=== PATIENT | male | born 1970 | race Hispanic/Latino ===

== ENCOUNTER 2018-08-29 20:39 | Emergency (ER) | payer SELFPAY ==
[2018-08-30] MEDS ORDERED: Ketorolac Tromethamine 30 MG/ML VIAL ONE (00:59)
[2018-08-30] MEDS ORDERED: Acetaminophen 500 MG TAB ONE (00:59)
[2018-08-30 01:04] LABS: #Eosinphils 0.3 thou/uL (0.0-0.7); #Lymphocytes 1.2 thou/uL (1.20-3.40); #Monocytes 0.6 thou/uL (0.11-0.59); #Neutrophils 6.7 thou/uL (1.40-6.50); %Basophils 0.4 % (0.0-1.0); %Eosinophils 3.2 % (0.0-10.0); %Lymphocytes 13.7 % (21.0-51.0); %Monocytes 7.1 % (0.0-10.0); %Neutrophils 75.5 % (42.0-75.0); Hemoglobin 14.2 g/dL (14.0-18.0); Mean Corpuscular HGB CONC 32.5 g/dL (32.0-36.0); Mean Corpuscular Volume 92.1 fL (78.0-98.0); Mean Platelet Volume 8.8 fL (7.4-10.4); Platelet Count 220 thou/uL (130-400); RBC Distribution Width 12.2 % (11.5-14.5); Red Blood Cell (RBC) Count 4.75 mill/uL (4.70-6.10); White Blood Cell (WBC) Count 8.8 thou/uL (4.8-10.8)
[2018-08-30 01:31] LABS: ALT (SGPT) 24 U/L (8-55); AST (SGOT) 34 U/L (5-34); Alkaline Phosphatase 162 U/L (40-150); Anion Gap 12 mmol/L (10-20); BUN (Urea Nitrogen) 11 mg/dL (8.9-20.6); Bilirubin, Total 0.4 mg/dL (0.2-1.2); Calc. Creatinine Clearance 0 mL/min (70-130); Calcium 9.7 mg/dL (7.8-10.44); Carbon Dioxide 25 mmol/L (22-29); Chloride 104 mmol/L (98-107); Estimated GFR-MDRD Greater than 90; Globulin 3.6 g/dL (2.4-3.5); Glucose 102 mg/dL (70-105); Potassium 3.4 mmol/L (3.5-5.1); Protein, Total 7.6 g/dL (6.0-8.3); Sodium 138 mmol/L (136-145)
--- NOTE | 2018-08-30 09:33 | RAD ---
FRONTAL AND LATERAL IMAGING CHEST: D ATE: 08/29/2018. COMPARISON: 02/23/2015. HISTORY: Cough and congestion. FINDINGS: There is no pneumothorax, pleural fluid, focal consolidation, or alveolar edema. There is diffuse in creased interstitial density with pulmonary hyperinflation suggesting air trapping. IMPRESSION: Interstitial prominence and pulmonary hyperinflation with no focal consolidation or alveolar edema. POS: [facility]
== END 2018-08-30 02:32 | disposition home or self-care (01) ==
LOC: ERS 20:39
DX: J18.9 Pneumonia, unspecified organism (principal); J45.909 Unspecified asthma, uncomplicated
CPT/HCPCS: 71046; 80053; 83605; 83880; 85025; 85379; 87040; 87804; 93005; 94640; 96361; 96374; J1885; J7620

== ENCOUNTER 2018-09-19 08:45 | Emergency (ER) | payer SELFPAY ==
--- NOTE | 2018-09-19 09:15 | RAD ---
EXAM: Chest Two Views 09/19/2018 9:11 AM HISTORY: Cough COMPARISON: August 29, 2018 FINDINGS: Heart: Normal Pulmonary vessels: Heart size is normal. Costophrenic angles: The lungs are clear. Lungs: No confluent pneumonia, overt edema, pleural effusion, or other acute process. Pneumothorax: None Osseous structures: No acute osseous abnormality. IMPRESSION: No significant acute intrathoracic disease.
== END 2018-09-19 11:17 | disposition home or self-care (01) ==
LOC: ERS 08:45
DX: J20.9 Acute bronchitis, unspecified (principal); Z79.899 Other long term (current) drug therapy; Z79.51 Long term (current) use of inhaled steroids
CPT/HCPCS: 71046; 94640; J7620

== ENCOUNTER 2019-02-17 06:56 | Day surgery (SDC) | payer OTHER ==
[2019-02-16 10:15] VITALS: BMI 25.0
--- NOTE | 2019-02-17 07:30 | HP ---
HISTORY OF PRESENT ILLNESS: This is a 48-year-old [place] male, comes here for a colonoscopy for colon cancer screening. The patient has no specific reason. He has no family history of colon cancer. ALLERGIES: NONE. SOCIAL HISTORY: The patient does not smoke or drink alcohol. PAST MEDICAL HISTORY: 1. Asthma. 2. Anxiety. 3. Laparoscopic cholecystectomy in 2008 for gallstone. REVIEW OF SYSTEMS: Unremarkable. PHYSICAL EXAMINATION: VITAL SIGNS: Pulse is 70, blood pressure _110/80_ CARDIOVASCULAR: First and second heart sounds heard. LUNGS: Clear to auscultation. ABDOMEN: Nontender, bowel sounds positive. ADMITTING DIAGNOSIS: A 48-year-old [place] male, comes in colonoscopy for colon cancer screening. Job ID: [id number] MTDD
[2019-02-17] MEDS ORDERED: PROPOFOL 200 MG/20 ML VIAL ONE (12:27)
[2019-02-17] MEDS ORDERED: Lidocaine 1% PF 5 ML VIAL ONE (12:27)
--- NOTE | 2019-02-17 16:38 | OP ---
DATE OF PROCEDURE: 02/17/2019 PROCEDURE PERFORMED: Colonoscopy. PREOPERATIVE DIAGNOSIS: Colon cancer screening. POSTOPERATIVE DIAGNOSIS: Diffuse colonic diverticular disease from sigmoid all the way to cecum. Otherwise normal exam. DESCRIPTION OF PROCEDURE: The patient was placed on his left lateral position and was given sedation by Anesthesia Department. A rectal exam was done before the scope was advanced into the rectum. No lesions felt on rectal exam. A Pentax video colonoscope was introduced into the rectum and advanced all the way into the cecum. The prep was good. The appendicular opening, ileocecal valve, and cecum well seen. The patient has had cecal diverticular disease and also diverticulosis in the ascending colon. Withdrawal of scope in the ascending colon, into the hepatic flexure, transverse colon, splenic flexure, descending colon, sigmoid colon shows scattered diverticular disease. Retroflexion of scope in the rectum showed no pathology. DISCHARGE PLANNING: This is a 48-year-old Latin-[place] male came for colonoscopy for colon cancer screening. He underwent colonoscopy and was found to have scattered diverticular disease. There was no pathology seen. DISCHARGE RECOMMENDATIONS: 1. The patient advised to call me if he develops abdominal pain, hematochezia, or fever. 2. High-fiber diet. 3. Repeat colonoscopy in 10 years as he has average risk for colon cancer. Job ID: [id number]
== END 2019-02-17 10:31 | disposition home or self-care (01) ==
LOC: SDC 06:56
PROVIDERS: ATTEND Internal Medicine Gastroenterology
PROC: 0DJD8ZZ Inspection of Lower Intestinal Tract, Via Natural or Artificial Opening Endoscopic (ICD-10-PCS; principal; 2019-02-17)
DX: Z12.11 Encounter for screening for malignant neoplasm of colon (principal); K57.30 Diverticulosis of large intestine without perforation or abscess without bleeding; J45.909 Unspecified asthma, uncomplicated
CPT/HCPCS: J2001; J2704

== ENCOUNTER 2019-11-04 19:00 | Outpatient (CLI) | payer OTHER | END 2019-11-04 19:01 | disposition home or self-care (01) | LOC: SLEEPLAB 19:00 | PROVIDERS: ATTEND Family Medicine | DX: G47.10 Hypersomnia, unspecified (principal); R51 Headache; R53.83 Other fatigue; F41.9 Anxiety disorder, unspecified; F32.9 Major depressive disorder, single episode, unspecified; G47.419 Narcolepsy without cataplexy; G47.00 Insomnia, unspecified; G47.61 Periodic limb movement disorder; G47.33 Obstructive sleep apnea (adult) (pediatric) | CPT/HCPCS: 95811 ==

== ENCOUNTER 2021-12-25 12:43 | Emergency (ER) | payer OTHER ==
[~2021-12-25 12:43] MED LIST: Iopamidol-370 76% 500 ML 1 ML ONE
[2021-12-25 14:57] LABS: #Eosinphils 0.1 thou/uL (0.0-0.7); #Lymphocytes 2.6 thou/uL (1.20-3.40); #Monocytes 0.5 thou/uL (0.11-0.59); #Neutrophils 3.8 thou/uL (1.40-6.50); %Basophils 0.6 % (0.0-1.0); %Eosinophils 1.9 % (0.0-10.0); %Lymphocytes 37.1 % (21.0-51.0); %Neutrophils 53.3 % (42.0-75.0); Hemoglobin 15.8 g/dL (14.0-18.0); Mean Corpuscular HGB CONC 33.1 g/dL (32.0-36.0); Mean Corpuscular Hemoglobin 31.4 pg (27.0-31.0); Mean Corpuscular Volume 94.8 fL (78.0-98.0); Platelet Count 193 thou/uL (130-400); RBC Distribution Width 12.5 % (11.5-14.5); Red Blood Cell (RBC) Count 5.04 mill/uL (4.70-6.10)
[2021-12-25 15:12] LABS: ALT (SGPT) 36 U/L (8-55); AST (SGOT) 29 U/L (5-34); Albumin 4.6 g/dL (3.5-5.0); Alkaline Phosphatase 152 U/L (40-110); Anion Gap 16 mmol/L (10-20); BUN (Urea Nitrogen) 13 mg/dL (8.4-25.7); Bilirubin, Total 0.7 mg/dL (0.2-1.2); Calc. Creatinine Clearance 0 mL/min (70-130); Calcium 9.2 mg/dL (7.8-10.44); Carbon Dioxide 21 mmol/L (22-29); Chloride 104 mmol/L (98-107); Estimated GFR 97; Globulin 3.8 g/dL (2.4-3.5); Glucose 92 mg/dL (70-105); Lipase 23 U/L (8-78); Potassium 3.7 mmol/L (3.5-5.1); Protein, Total 8.4 g/dL (6.0-8.3); Sodium 137 mmol/L (136-145)
== END 2021-12-25 17:36 | disposition home or self-care (01) ==
LOC: ERS 12:43
DX: M54.2 Cervicalgia (principal); R07.9 Chest pain, unspecified; R59.0 Localized enlarged lymph nodes; V89.2XXA Person injured in unspecified motor-vehicle accident, traffic, initial encounter
CPT/HCPCS: 71045; 72125; 74177; 80053; 83690; 85025; Q9967